=== PATIENT | male | born 1975 | race African-American/Black ===

== ENCOUNTER 2019-07-09 20:13 | Emergency (ER) | payer OTHER ==
[~2019-07-09] VITALS: Ht 157.5 cm; Wt 115.7 kg
[2019-07-09] MEDS ORDERED: METFORMIN HYDR750 MG PO (20:44)
[2019-07-09] MEDS ORDERED: GLIM2TAB PO (20:45)
[2019-07-09] MEDS ORDERED: LISI10TA11 PO (20:46)
[2019-07-09 20:56] LABS: PLATELET COUNT 179 K/uL (142-355)
[2019-07-09 21:11] LABS: SODIUM 138 mmol/L (136-145)
[2019-07-09 21:50] VITALS: BP 114/65; TEMP 98.2
== END 2019-07-09 21:50 | disposition home or self-care (01) ==
LOC: ED 20:13
PROVIDERS: Emergency Medicine
DX: R07.89 Other chest pain (principal)
CPT/HCPCS: 80053; 82550; 83690; 84484; 85027; 93005; 96374; 99284; J1885

== ENCOUNTER 2021-03-28 08:55 | Outpatient (CLI) | payer OTHER ==
[~2021-03-28 08:55] MED LIST: GLIM2TAB PO; LISI10TA11 PO; METFORMIN HYDR750 MG PO
[2021-03-28 09:24] LABS: PLATELET COUNT 142 K/uL (142-355)
[2021-03-28 09:47] LABS: POTASSIUM 4.2 mmol/L (3.6-5.2)
== END 2021-03-28 22:18 | disposition home or self-care (01) ==
LOC: LABW 08:55
PROVIDERS: ATTEND Internal Medicine
DX: E11.9 Type 2 diabetes mellitus without complications (principal); R35.0 Frequency of micturition
CPT/HCPCS: 36415; 80053; 80061; 81000; 83036; 84153; 84439; 84443; 85027

== ENCOUNTER 2021-07-22 05:48 | Outpatient (CLI) | payer OTHER ==
[2021-07-22 06:21] LABS: PLATELET COUNT 154 K/uL (142-355)
[2021-07-22 06:44] LABS: POTASSIUM 4.2 mmol/L (3.6-5.2)
== END 2021-07-22 18:49 | disposition home or self-care (01) ==
LOC: LABW 05:48
PROVIDERS: ATTEND Internal Medicine
DX: E11.9 Type 2 diabetes mellitus without complications (principal)
CPT/HCPCS: 36415; 80053; 80061; 81000; 82043; 83036; 84439; 84443; 85027

== ENCOUNTER 2022-10-20 09:21 | Outpatient (CLI) | payer OTHER | END 2022-10-20 19:03 | disposition home or self-care (01) | LOC: US 09:21 | PROVIDERS: ATTEND Internal Medicine | DX: R79.89 Other specified abnormal findings of blood chemistry (principal) ==

== ENCOUNTER 2023-01-19 10:46 | Outpatient (CLI) | payer OTHER ==
[2023-01-19 11:08] LABS: PLATELET COUNT 165 K/uL (142-355)
[2023-01-19 11:14] LABS: POTASSIUM 3.8 mmol/L (3.6-5.2)
== END 2023-01-19 20:26 | disposition home or self-care (01) ==
LOC: CT 10:46
PROVIDERS: ATTEND Internal Medicine
DX: R10.31 Right lower quadrant pain (principal)
CPT/HCPCS: 80048; 85027; Q9963